=== PATIENT | male | born 1965 | race Two or more races ===

== ENCOUNTER 2016-09-18 07:44 | Day surgery (SDC) | payer OTHER ==
[~2016-09-18 07:44] MED LIST: FENTANYL 250 MCG/5 ML AMP IV PRN; LACTATED RINGERS 1,000 ML IV SCH; MIDAZOLAM HCL 5 MG/5 ML VIAL IV PRN
[2016-09-18] MEDS ORDERED: LACTATED RINGERS 1,000 ML ONE (08:03)
[2016-09-18] MEDS ORDERED: IV START KIT ONE (08:04)
[2016-09-18] MEDS ORDERED: MIDAZOLAM HCL 5 MG/5 ML VIAL ONE (08:55)
[2016-09-18] MEDS ORDERED: FENTANYL 5 ML ONE (08:56)
== END 2016-09-18 10:10 | disposition home or self-care (01) ==
LOC: SDC 07:44
PROVIDERS: ATTEND Internal Medicine Gastroenterology
PROC: 0DJD8ZZ Inspection of Lower Intestinal Tract, Via Natural or Artificial Opening Endoscopic (ICD-10-PCS; principal; 2016-09-18)
DX: Z12.11 Encounter for screening for malignant neoplasm of colon (principal); I10 Essential (primary) hypertension; E78.5 Hyperlipidemia, unspecified; E66.9 Obesity, unspecified; Z68.36 Body mass index [BMI] 36.0-36.9, adult
CPT/HCPCS: 45378; J3010; J2250; J7120